=== PATIENT | male | born 1935 | race Caucasian/White ===

== ENCOUNTER 2021-02-10 07:54 | Day surgery (SDC) | payer MEDICARE, OTHER ==
[~2021-02-10 07:54] MED LIST: BETIMOL0.51 OU; CALCIUM + D3 601 TAB PO; CIPROFLOXACN500 MG PO; ELIQUIS5 MG PO; LIPITOR20 MG PO; METOPROL TAR25 MG PO; MULTI VIT PO; NITROSTAT0.4 MG SL; ODORLESS GARL PO; SILVADENE1 % EX; TAMSULOSIN0.4 MG PO; TURMERIC500 M1 PO; VITAMIN C500 M6 PO; XALATAN 0.005%2.5 ML OU
[2021-02-10 10:30] VITALS: BP 130/60
== END 2021-02-10 10:51 | disposition home or self-care (01) ==
LOC: ORM 07:54
PROVIDERS: ATTEND Urology
PROC: 0VB03ZX Excision of Prostate, Percutaneous Approach, Diagnostic (ICD-10-PCS; principal; 2021-02-10)
PROC: BV49ZZZ Ultrasonography of Prostate and Seminal Vesicles (ICD-10-PCS; 2021-02-10)
DX: C61 Malignant neoplasm of prostate (principal); N40.1 Benign prostatic hyperplasia with lower urinary tract symptoms; R35.1 Nocturia; R39.12 Poor urinary stream; N39.41 Urge incontinence; E11.9 Type 2 diabetes mellitus without complications; I48.91 Unspecified atrial fibrillation; E78.5 Hyperlipidemia, unspecified; I35.0 Nonrheumatic aortic (valve) stenosis
CPT/HCPCS: J1956

== ENCOUNTER 2021-03-31 11:44 | Observation (INO) | payer MEDICARE, OTHER ==
[~2021-03-31] VITALS: Ht 180.3 cm; Wt 72.6 kg
[2021-03-31 17:00] VITALS: BP 144/71
--- NOTE | 2021-03-31 19:00 | NUR ---
RECEIVED PT FROM SOCIAL PROBLEMS SPECIALIST BIGG. PT IS POST CBI/TURP. PT ARRIVED ON A STRETCHER AND WAS TRANSFERED TO THE BED. PT C/O OF NAUSEA. PT CLAIMS HE IS VERY HUNGRY. DIET WILL START ON ICE CHIPS AND PROGRESS TOLERATED. PT RECEIVING IV NS AT 125 PER HR. WILL CONTINUE TO MONITOR.
--- NOTE | 2021-03-31 20:00 | NUR ---
PHYSICAL ASSESMENT COMPLETE. PT CURRENTLY DENIES PAIN OR DISCOMFORT. SCHEDULED MEDICATIONS AND PRN MEDICATION ADMINISTERED, SEE E-MAR. PT DENIES ANY NEEDS AT THIS TIME. PT HAS A SHELTON IN PLACE DRAINING TO GRAVITY. PLAN OF CARE REVIEWED, PT DENIES QUESTIONS, VERBALIZES UNDERSTANDING. ITEMS WITHIN REACH, BED LOCKED IN LOW POSITION W/ BEDRAILS UP X2. CALL RUBIN WITHIN REACH, AGREES TO CALL PRN.
--- NOTE | 2021-03-31 20:00 | NUR ---
PHYSICAL ASSESMENT COMPLETE. PT CURRENTLY DENIES PAIN OR DISCOMFORT. SCHEDULED MEDICATIONS AND PRN MEDICATION ADMINISTERED, SEE E-MAR. PT DENIES ANY NEEDS AT THIS TIME. PLAN OF CARE REVIEWED, PT DENIES QUESTIONS, VERBALIZES UNDERSTANDING. ITEMS WITHIN REACH, BED LOCKED IN LOW POSITION W/ BEDRAILS UP X2. CALL RUBIN WITHIN REACH, AGREES TO CALL PRN.
--- NOTE | 2021-03-31 22:39 | NUR ---
PT HAS A SHELTON IN PLACE THAT IS DRAINING TO GRAVITY. PT HAS PRORESSED TO A CLEAR LIQUID DIET. NO FURTHER REPORTS OF NAUSEA. WILL CONTINUE TO MONITOR.
[2021-04-01] VITALS: BP 102/52
--- NOTE | 2021-04-01 00:53 | NUR ---
PT LAYING IN BED WITH EYES CLOSED, APPEARS TO BE SLEEPING, APPEARS COMFORTABLE AND IN NO DISTRESS. RESPIRATIONS REGULAR AND UNLABORED. ITEMS REMAIN WITHIN REACH, CALL RUBIN REMAINS WITHIN REACH. BED REMAINS LOCKED AND IN LOW POSITION WITH BEDRAILS UP X2. WILL CONTINUE TO MONITOR.
[2021-04-01 04:00] VITALS: BP 104/55
--- NOTE | 2021-04-01 04:00 | NUR ---
PT RESTING IN BED, NO SIGNS OF DISTRESS NOTED, RESP EVEN AND UNLABORED. PT VOICES NO NEEDS OR COMPLAINTS AT THIS TIME. CALL LIGHT IN REACH, CONTINUE TO MONITOR.
[2021-04-01 08:30] VITALS: BP 117/67
[2021-04-01 09:25] LABS: IMMATURE GRANULOCYTES 0.2 % (0.0-5.0); MEAN CELL VOLUME 94.9 fL CALC (80.0-100.0); MEAN CORPUSCULAR HGB 31.6 pG CALC (26.0-32.0); MEAN CORPUSCULAR HGB CONC 33.3 g/dL CAL (32.0-36.0); NEUT# 7.81 thou/uL (1.82-7.42); RED BLOOD COUNT 4.11 mill/uL (4.70-6.10); RED CELL DISTRI WIDTH 12.7 % (11.5-15.5)
[2021-04-01 09:37] LABS: ANION GAP 9 (6-22 (CALC)); BUN 18 mg/dL (8-23); BUN/CREATININE RATIO 23 (12-20 (CALC)); CARBON DIOXIDE 28 mmol/l (22-30); CHLORIDE 107 mmol/l (95-108); CREATININE 0.8 mg/dL (0.7-1.3); GFR > 60 ML/MIN (>=60 (CALC)); GFR FOR AFR.AMER. > 60 ML/MIN (>=60 (CALC)); POTASSIUM 4.5 mmol/l (3.5-5.1); SODIUM 138 mmol/l (137-146)
[2021-04-01] MEDS ORDERED: ZOFRAN4 MG/TAB PO (10:33)
[2021-04-01 11:19] VITALS: BP 110/65
--- NOTE | 2021-04-01 13:05 | NUR ---
Discharge instructions given. Patient verbalizes understanding of same. Discharged in stable condition via Wheelchair to Home with family. All belongings sent with pt.
== END 2021-04-01 13:05 | disposition home or self-care (01) ==
LOC: ORM 11:44 → MS2 18:55
PROVIDERS: Nurse Practitioner; ADMIT Urology; ATTEND Urology
PROC: 0VB08ZZ Excision of Prostate, Via Natural or Artificial Opening Endoscopic (ICD-10-PCS; principal; 2021-03-31)
DX: N40.1 Benign prostatic hyperplasia with lower urinary tract symptoms (principal); N13.8 Other obstructive and reflux uropathy; R39.12 Poor urinary stream; R35.1 Nocturia; C61 Malignant neoplasm of prostate; R11.2 Nausea with vomiting, unspecified; E11.9 Type 2 diabetes mellitus without complications; I48.91 Unspecified atrial fibrillation; E78.5 Hyperlipidemia, unspecified; I35.0 Nonrheumatic aortic (valve) stenosis
CPT/HCPCS: J0131; J1956; J2710

== ENCOUNTER 2024-08-31 23:06 | Inpatient (IN) | payer MEDICARE, OTHER ==
[~2024-08-31] VITALS: Ht 177.8 cm; Wt 75.0 kg
[~2024-08-31 23:06] MED LIST changes: +ALDACTONE25 MG PO; +ASPIRIN 81 LOW81 MG PO; +BRIMONIDINE0.2 % OU; +METFORMIN500 M2 PO; +PLAVIX75 MG PO; +TOPROL XL25 M1 PO; +ZOFRAN4 MG/TAB PO
[2024-08-31] MEDS ORDERED: LIDOCAINE HCL 2 % JELLY UR ONE (23:40)
[2024-08-31] MEDS ORDERED: CIPROFLOXACIN HCL 500 MG/TAB PO ONE (23:40)
[2024-09-01] VITALS (32 sets, daily range): BP systolic 91–152; BP diastolic 44–103
[2024-09-01 00:14] LABS: BASO% 0.4 % (0-3); EOS% 0.3 % (0-8); HEMATOCRIT 34.5 % (39.0-50.0); HEMOGLOBIN 11.1 g/dl (14.0-18.0); IMMATURE GRANULOCYTES 0.4 % (0.0-5.0); LYMPH% 14.5 % (15-41); MEAN CELL VOLUME 90.1 fL CALC (80.0-100.0); MEAN CORPUSCULAR HGB CONC 32.2 g/dL CAL (32.0-36.0); MONO% 6.3 % (2-13); NEUT# 11.61 thou/uL (1.82-7.42); NEUT% 78.1 % (42-76); RED BLOOD COUNT 3.83 mill/uL (4.70-6.10)
--- NOTE | 2024-09-01 00:30 | NUR ---
[address] SHELTON USUCCESFULL. PER EDP, INSERT REGULAR SHELTON. #22 STATELESS COUDE INSERTED ON FIRST ATTEMPT.
[2024-09-01 00:42] LABS: CREATININE 1.1 mg/dL (0.7-1.3); POTASSIUM 4.3 mmol/l (3.5-5.1)
[2024-09-01] MEDS ORDERED: SODIUM CHLORIDE 0.9% 1,000 ML IV ONE ×4 (00:45→16:41)
--- NOTE | 2024-09-01 00:45 | NUR ---
SHELTON OCCLUDED, MANUAL ATTEMPTS TO IRRIGATE UNSUCCESFUL.
--- NOTE | 2024-09-01 01:30 | NUR ---
24 divehi decker inserted, patient tolerated well, copious amounts of bright red blood draining around decker. approximately 300cc of maroon blood irrigated upon insertion.
[2024-09-01] MEDS ORDERED: KETOROLAC TROMETHAMINE 30 MG/ML SDV IV ONE (01:55)
[2024-09-01] MEDS ORDERED: ACETAMINOPHEN 500 MG TAB PO ONE (01:55)
--- NOTE | 2024-09-01 05:30 | NUR ---
decker manually irrigated. decker now flowing steadily. bright red blood.
--- NOTE | 2024-09-01 06:57 | NUR ---
PT REPORT GIVEN TO ADA MA
--- NOTE | 2024-09-01 07:05 | NUR ---
PT RESTING IN BED, CBI RUNNING, 1500 ML OF FLUIDS BACK IN THE SHELTON BAG, PT DENIES ANY PAIN OR NEEDS AT THIS TIME, CALL LIGHT WITHIN REACH, VSS
[2024-09-01 07:29] LABS: URINE BLOOD DIPSTICK Large (NEGATIVE); URINE GLUCOSE - DIPSTICK Negative (NEGATIVE); URINE KETONE 15 mg/dL (NEGATIVE); URINE NITRITE - DIPSTICK Negative (Negative); URINE PROTEIN - DIPSTICK >=300 mg/dL (NEG-TRACE)
[2024-09-01 07:33] LABS: URINE COLOR Red; URINE LEUK ESTERASE Large (NEGATIVE)
[2024-09-01 07:35] LABS: URINE RBC >100 RBC/hpf (0-5)
[2024-09-01 07:36] LABS: URINE BACTERIA FEW hpf; URINE SQUAMOUS EPITHELIAL CELL RARE EPI/hpf (0-FEW)
[2024-09-01] MEDS ORDERED: Meropenem 1 GM in SODIUM CHLORIDE 0.9% 100 ML IV ONE (08:35)
[2024-09-01] MEDS ORDERED: VANCOMYCIN HCL 1 GM in SODIUM CHLORIDE 0.9% 500 ML IV ONE (08:35)
--- NOTE | 2024-09-01 09:05 | NUR ---
PT MEDICATED PER EMAR, PT RESTING IN BED, CBI IN PLACE, UPDATED ON THE PLAN OF CARE, UPDATED ON THE PLAN OF CARE, DENEIS ANY NEEDS
--- NOTE | 2024-09-01 11:29 | NUR ---
PT IN BED, CBI RUNNING, PT HAS APPROX 200 ML URINE OUTPUT, PTS SPOUSE AT BEDSIDE, UPDATED ON THE PLAN OF CARE, DENIES ANY NEEDS, PT CHANGED INTO CLEAN AND DRY CLOTHING
[2024-09-01] MEDS ORDERED: ACETAMINOPHEN 325 MG/TAB PO PRN (12:20)
[2024-09-01] MEDS ORDERED: SODIUM CHLORIDE 0.9% 1,000 ML IV PRN (12:20)
[2024-09-01] MEDS ORDERED: MAGNESIUM HYDROXIDE 30 ML UDC PO PRN (12:20)
--- NOTE | 2024-09-01 13:18 | NUR ---
BLADDER SCAN COMPLETED 450 NOTED. SHELTON NOTED NOT DRAINING, IRRIGATION COMPLETED WITH COPIOUS AMOUNTS OF CLOTS NOTED. SHELTON NOTED OPEN AND DRAINING DARK RED AT THIS TIME.
--- NOTE | 2024-09-01 14:14 | NUR ---
SHELTON DRAINING LIGHT RED, 2,000 ML EMPTIED FROM THE SHELTON BAG, PT RESTING IN BED, VSS, CALL LIGHT WITHIN REACH, UPDATED ON THE PLAN OF CARE, DENIES ANY NEEDS
--- NOTE | 2024-09-01 14:44 | NUR ---
OR TEAM HERE FOR TRANSPORT, REPORT GIVEN TO FRANCESCA MEDRANO,CARE RELINQUISHED AT THIS TIME
[2024-09-01] MEDS ORDERED: FAMOTIDINE 10MG/ML 2ML SDV IV ONE (15:04)
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
[2024-09-01] MEDS ORDERED: SODIUM CHLORIDE 1,000 ML BTL IR ONE (16:38)
[2024-09-01] MEDS ORDERED: STERILE WATER FOR IRRIGATION 500 ML BTL IR ONE (16:38)
[2024-09-01] MEDS ORDERED: SODIUM CHLORIDE 3,000 ML BAG FOR IRRIGATION IR ONE (16:38)
[2024-09-01] MEDS ORDERED: SODIUM CHLORIDE 3,000 ML BAG FOR IRRIGATION IR SCH (17:00)
--- NOTE | 2024-09-01 17:26 | NUR ---
PT ARRIVE TO THE UNIT IN A STRETCHER ACCOMPANIED BY TWO OR NURSES. PT SHIFTED BODY WEIGHT BY SELF TO BED. NO S/S OF DISTRESS AT THIS TIME. [address]. FLUIDS RUNNING. RESP EVEN AND UNLABORED ON ROOM AIR. BED IN THE LOWEST POSITION AND CALL LIGHT WITHIN REACH.
--- NOTE | 2024-09-01 20:00 | NUR ---
awake. oriented to name only. cbi infusing @ mod rate. urine clear. 1 clot seen. ivf infusing well. fall precautions cont. bed alarm on.
--- NOTE | 2024-09-01 23:00 | NUR ---
bed alarm sounding. pt sitting on side of bed. iv found in bed. pt said "i'm home." unable to reorient. assisted into bed. iv restarted. ivf resumed. linen changed x2 assists. bed alarn resumed.
--- NOTE | 2024-09-02 00:01 | NUR ---
eyes closed. cbi cont. urine clear.
--- NOTE | 2024-09-02 04:00 | NUR ---
awake @ present. thinks he's "@ home." unable to reorient.
[2024-09-02 05:00] VITALS: BP 129/65
[2024-09-02 05:22] LABS: MEAN CELL VOLUME 92.1 fL CALC (80.0-100.0); MEAN CORPUSCULAR HGB 29.5 pG CALC (26.0-32.0); RED BLOOD COUNT 2.92 mill/uL (4.70-6.10); RED CELL DISTRI WIDTH 14.6 % (11.5-15.5)
[2024-09-02 05:26] LABS: HEMATOCRIT 26.9 % (39.0-50.0); HEMOGLOBIN 8.6 g/dl (14.0-18.0)
[2024-09-02 05:40] LABS: CREATININE 0.8 mg/dL (0.7-1.3); MAGNESIUM 1.8 mg/dL (1.6-2.3); TOTAL PROTEIN 4.9 g/dL (6.3-8.2)
[2024-09-02 05:52] VITALS: BP 120/61
[2024-09-02 05:56] LABS: ALBUMIN 2.7 g/dL (3.2-5.0)
--- NOTE | 2024-09-02 07:15 | NUR ---
PT LAYING IN BED AWAKE, PT IS ALERT AND ORIENTED WITH MOMENTS OF CONFUSION, PT EASILY REORINETED, PUPILS PERRL, RESP. EVEN AND UNLABORED, LUNGS SOUNDS ARE CLEAR, ABD DISTENDED AND SOFT WITH ACTIVE BOWEL SOUNDS, IV FOUND DISLODGED, 3 WAY SHELTON CATH WITH PEACH COLORED URINE DRAINING, STRONG RADIAL AND PEDAL PULSES, SAFETY MEASURES REINFORCED, CALL RUBIN WITHIN REACH
[2024-09-02 07:26] VITALS: BP 120/61
[2024-09-02] MEDS ORDERED: TAMSULOSIN HCL 0.4 MG CAP PO SCH (09:00)
[2024-09-02] MEDS ORDERED: METOPROLOL SUCCINATE 25 MG/TAB-TOPROL XL PO SCH (09:00)
--- NOTE | 2024-09-02 12:00 | NUR ---
PT SITTING IN THE RECLINER EATING LUNCH, PT HAS MOMENTS OF CONFUSION BUT IS EASILY ORIENTED, NO S/S OF DISTRESS, 3 WAY SHELTON CATH REMAINS IN PLACE WITH CBI CLEAR YELLOW URINE, SAFETY MEASURE IN PLACE, CALL RUBIN WITHIN REACH
[2024-09-02 15:30] VITALS: BP 120/72
--- NOTE | 2024-09-02 16:30 | NUR ---
PT MOVED FROM 266 TO 260 TO BE CLOSER TO THE NURSES STATION, PT A&O WITH MOMENTS OF CONFUSION, CBI IN PLACE WITH CLEAR YELLO URINE DRAINING, SAFETY MEASURES REINFORCED, CALL RUBIN WITHIN REACH
[2024-09-02 17:46] VITALS: BP 120/72
--- NOTE | 2024-09-02 19:15 | NUR ---
awake. remains confused. thinks he's @ home. unable to reorient. cbi cont @ moderate rate. urine clear. no clots. po fluids taken fair. fall precautions & bed alarm conts.
[2024-09-02 19:51] VITALS: BP 121/70
[2024-09-02] MEDS ORDERED: ATORVASTATIN CALCIUM 20 MG/TAB PO SCH (21:00)
--- NOTE | 2024-09-02 23:30 | NUR ---
bed alarm sounding. pt attempting to get oob. pt repositioned. bed alarm reactivated.
[2024-09-03] VITALS (11 sets, daily range): BP systolic 90–123; BP diastolic 53–74
--- NOTE | 2024-09-03 03:56 | NUR ---
eyes closed. no distress. cbi cont. urine clear.
[2024-09-03 06:25] LABS: HEMATOCRIT 24.3 % (39.0-50.0); MEAN CELL VOLUME 90.7 fL CALC (80.0-100.0); MEAN CORPUSCULAR HGB 29.9 pG CALC (26.0-32.0); MEAN CORPUSCULAR HGB CONC 32.9 g/dL CAL (32.0-36.0); RED BLOOD COUNT 2.68 mill/uL (4.70-6.10); RED CELL DISTRI WIDTH 14.4 % (11.5-15.5)
[2024-09-03 06:31] LABS: ALBUMIN 2.5 g/dL (3.2-5.0); BILIRUBIN, TOTAL 0.7 mg/dL (0.2-1.3); CREATININE 0.7 mg/dL (0.7-1.3); MAGNESIUM 1.7 mg/dL (1.6-2.3); POTASSIUM 3.8 mmol/l (3.5-5.1); TOTAL PROTEIN 4.5 g/dL (6.3-8.2)
--- NOTE | 2024-09-03 07:50 | NUR ---
MD AT BEDSIDE DISCUSSING PLAN OF CARE WITH PT.
--- NOTE | 2024-09-03 08:03 | NUR ---
PT IS ALERT, REPORTS CURRENT MO FEB, PLACE [place], LUNGS ARE CLEAR, BOWEL SOUNDS ACTIVE, PEDAL PULSES PALPABLE TO TOUCH, PT DENIES PAIN AT THIS TIME.
--- NOTE | 2024-09-03 08:12 | NUR ---
TELEPHONE CONSENT OBTAINED FROM NEY BAZAN WITH 2ND NURSE Memo JAY TO VERIFY FOR 1 UNIT OF PRBC.
[2024-09-03] MEDS ORDERED: FUROSEMIDE 40 MG/4 ML SDV IV SCH (10:30)
--- NOTE | 2024-09-03 12:15 | NUR ---
PT SITTING UP IN BED PLESENTLY CONFUSED WITH PRBC RUNNING, RESPIRATIONS ARE EVEN AND UNLABORED ON ROOM AIR, PT DENIES ANY SOB AT THIS THIS TIME. PT DENIES PAIN AT THGIS TIME.
--- NOTE | 2024-09-03 14:50 | NUR ---
PT UP OUT OF BED INTO CHAIR.
--- NOTE | 2024-09-03 19:05 | NUR ---
REPORT RECIVED FROM DAY SHIFT NURSE JULIA. PT IS ALERT AND ORIENTED TO SELF AND PLACE. DENIES ANY PAIN OR ANY NEEDS. RESPS EVEN AND UNLABORED ON ROOM AIR. LUNGS ARE CLEAR. SHELTON CATHETER IN PLACE DRAINING CLEAR, YELLOW URINE WITHOUT ANY KINKS-NO CLOTS SEEN OR BLOODY URINE AT THIS TIME. 22 LAC-SALINE LOCK FLUSHES AND WORKS WELLS. 22 G L WRIST INFUSING NS ORDERED PER EMAR. NO EDEMA NOTED TO LOWER EXTREMITIES. SCD'S ARE IN PLACE. WEAK PEDAL PULSES TO TOUCH. CALL LIGHT IS IN REACH AND SAFETY PRECAUTIONS IN PLACE.
[2024-09-03] MEDS ORDERED: DEXTROSE 250 ML IV PRN (22:00)
[2024-09-03] MEDS ORDERED: INSULIN LISPRO 100 UNITS/ML ML SC SCH (22:10)
--- NOTE | 2024-09-04 | NUR ---
PATIENT RESTING IN BED IN SUPINE POSITION WITH EYES CLOSED. RESPS ARE EVEN AND UNLABORED ON ROOM AIR. NO VISUAL SIGNS OF DISTRESS AT THE MOMENT. SHELTON STILL REMAINS IN PLACE DRAINING CLEAR YELLO URINE. IVF NORMAL SALINE INFUSING AT 125 MLS/HR VIA LEFT WRIST. CALL LOGHT IS IN REACH AND SAFETY PRECAUTIONS IN PLACE. PLAN OF CARE OF ONGOING
--- NOTE | 2024-09-04 05:11 | NUR ---
PATIENT RESTING IN BED WITH EYES CLOSED. NO VISUAL SIGNS OF DISTRESS AT THIS TIME. SHELTON REMAINS DRAINING TO GRAVITY CLEAR URINE. IVF NORMAL SALINE STILL ONGOING. CALL LIGHT IS IN REACH AND SAFETY PRECAUTIONS IN PLACE.
[2024-09-04 05:27] LABS: BASO% 0.5 % (0-3); EOS% 2.4 % (0-8); HEMATOCRIT 28.3 % (39.0-50.0); HEMOGLOBIN 9.5 g/dl (14.0-18.0); IMMATURE GRANULOCYTES 0.1 % (0.0-5.0); LYMPH% 28.2 % (15-41); MEAN CELL VOLUME 89.6 fL CALC (80.0-100.0); MEAN CORPUSCULAR HGB 30.1 pG CALC (26.0-32.0); MEAN CORPUSCULAR HGB CONC 33.6 g/dL CAL (32.0-36.0); MONO% 10.6 % (2-13); NEUT# 5.02 thou/uL (1.82-7.42); NEUT% 58.2 % (42-76); RED BLOOD COUNT 3.16 mill/uL (4.70-6.10); RED CELL DISTRI WIDTH 14.4 % (11.5-15.5)
[2024-09-04 05:29] VITALS: BP 131/63
[2024-09-04 05:41] VITALS: BP 110/67
[2024-09-04 05:52] LABS: ALBUMIN 2.5 g/dL (3.2-5.0); BILIRUBIN, TOTAL 0.9 mg/dL (0.2-1.3); CREATININE 0.8 mg/dL (0.7-1.3); MAGNESIUM 1.7 mg/dL (1.6-2.3); POTASSIUM 3.6 mmol/l (3.5-5.1); TOTAL PROTEIN 4.5 g/dL (6.3-8.2)
[2024-09-04] MEDS ORDERED: INSULIN LISPRO 100 UNITS/ML ML SC SCH (07:00)
--- NOTE | 2024-09-04 07:46 | NUR ---
PT IS AOX4, OEIRNTED TO CURRENT PLACE, AND YEAR, LUNGS ARE CLEAR, BOWEL SOUNDS ARE ACTIVE, PEDAL PULSES ARE PALPABLE TO TOUCH, PT DENIES PAIN AT THIS TIME.
[2024-09-04 08:27] VITALS: BP 110/67
[2024-09-04] MEDS ORDERED: CIPROFLOXACN500 MG PO (11:04)
--- NOTE | 2024-09-04 13:14 | NUR ---
PT LEFT THE UNIT VIA WHEELCHAIR STAFF TRANSPORT WITH BELONGINGS IN HAND.
--- NOTE | 2024-09-04 13:45 | NUR ---
reviewed discharge instructions with pt and , removed IV's, educated pt and on clean decker care. pt awaiting discharge transport.
== END 2024-09-04 13:51 | DRG 663 ==
LOC: ED 23:06 → ED-I 09-01 09:00 → ED 09-01 09:14 → ED-I 09-01 09:15 → MS2 09-01 17:18
PROVIDERS: Family Medicine; Nurse Practitioner Family; ADMIT Internal Medicine; ATTEND Internal Medicine
PROC: 0T9B70Z Drainage of Bladder with Drainage Device, Via Natural or Artificial Opening (ICD-10-PCS; principal; 2024-09-01)
PROC: 0W3R8ZZ Control Bleeding in Genitourinary Tract, Via Natural or Artificial Opening Endoscopic (ICD-10-PCS; 2024-09-01)
PROC: 0TCB8ZZ Extirpation of Matter from Bladder, Via Natural or Artificial Opening Endoscopic (ICD-10-PCS; 2024-09-01)
PROC: 30233N1 Transfusion of Nonautologous Red Blood Cells into Peripheral Vein, Percutaneous Approach (ICD-10-PCS; 2024-09-03)
DX: N30.41 Irradiation cystitis with hematuria (principal); D62 Acute posthemorrhagic anemia; N12 Tubulo-interstitial nephritis, not specified as acute or chronic; N42.1 Congestion and hemorrhage of prostate; R33.9 Retention of urine, unspecified; I48.91 Unspecified atrial fibrillation; I25.10 Atherosclerotic heart disease of native coronary artery without angina pectoris; E11.9 Type 2 diabetes mellitus without complications; I49.5 Sick sinus syndrome; Y84.2 Radiological procedure and radiotherapy as the cause of abnormal reaction of the patient, or of later complication, without mention of misadventure at the time of the procedure; Z79.01 Long term (current) use of anticoagulants; Z95.5 Presence of coronary angioplasty implant and graft; Z95.2 Presence of prosthetic heart valve; Z95.0 Presence of cardiac pacemaker; Z85.46 Personal history of malignant neoplasm of prostate; Z79.84 Long term (current) use of oral hypoglycemic drugs; Z92.3 Personal history of irradiation
CPT/HCPCS: J0744; J1815; J1940; J3370; P9016; Q9967